=== PATIENT | male | born 1980 ===

== ENCOUNTER 2017-04-13 02:27 | Emergency (ER) | payer OTHER ==
[2017-04-13 02:40] VITALS: O2SAT 95
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
[2017-04-13 05:23] VITALS: BP 121/77; PULSE 100; RESP 18; TEMP 98.7
--- NOTE | 2017-04-13 08:28 | RAD ---
Left hand three views History: Fracture. Comparison: None available. Findings: Transverse oblique distracted fracture deformity through the 4th proximal phalanx extending from the ulnar sided midshaft more distally to the level of the head on the radial side. Impression: Transverse oblique distracted fracture deformity through the 4th proximal phalanx extending from the ulnar sided midshaft more distally to the level of the head on the radial side.
== END 2017-04-13 05:23 | disposition home or self-care (01) ==
LOC: C.ER 02:27
DX: S62.615A Displaced fracture of proximal phalanx of left ring finger, initial encounter for closed fracture (principal); Y04.0XXA Assault by unarmed brawl or fight, initial encounter
CPT/HCPCS: 70450; 73130; 96372; 99285; J1885